=== PATIENT | female | born 1935 | race Caucasian/White ===

== ENCOUNTER 2023-01-14 18:49 | Emergency (ER) | payer OTHER, MEDICARE ==
[~2023-01-14] VITALS: Ht 167.6 cm; Wt 90.7 kg
[2023-01-14 19:10] VITALS: O2SAT 97
[2023-01-14] MEDS ORDERED: BACITRACIN 50,000 UNIT VIAL IM ONE (19:30)
[2023-01-14] MEDS ORDERED: CLEOCIN HCL150 MG PO (19:36)
[2023-01-14] MEDS ORDERED: BACITRACIN ZIN1 EACH EXT (19:39)
[2023-01-14] MEDS ORDERED: BACITRACIN ZINC 0.9GM TP ONE ×2 (19:43→19:45)
== END 2023-01-14 20:01 | disposition home or self-care (01) ==
LOC: FSED 18:55
DX: L03.115 Cellulitis of right lower limb (principal); S80.11XA Contusion of right lower leg, initial encounter; W22.03XA Walked into furniture, initial encounter; Y92.89 Other specified places as the place of occurrence of the external cause; I10 Essential (primary) hypertension; I48.91 Unspecified atrial fibrillation; F03.90 Unspecified dementia, unspecified severity, without behavioral disturbance, psychotic disturbance, mood disturbance, and anxiety; Z95.810 Presence of automatic (implantable) cardiac defibrillator; Z94.7 Corneal transplant status
CPT/HCPCS: 99283